=== PATIENT | female | born 1995 | race American Indian/Alaskan Native ===

== ENCOUNTER 2017-11-19 10:59 | Outpatient (CLI) | payer MEDICAID ==
[2017-11-19 13:26] LABS: Bilirubin,Urine NEG (Negative); Blood,Urine NEG (Negative); Color,Urine Yellow (Yellow); Mucus,Urine 3+ /HPF; Nitrite,Urine NEG (Negative); Urobilinogen,Urine < 2.0 mg/dL (<2.0)
[2017-11-19 13:35] LABS: Amphetamine Screen,Urine PRESUMPTIVE NEGATIVE; Benzodiazepines Screen,Urine PRESUMPTIVE NEGATIVE; Cocaine Screen,Urine PRESUMPTIVE NEGATIVE; Methadone Screen,Urine PRESUMPTIVE NEGATIVE; Opiate Screen,Urine PRESUMPTIVE NEGATIVE
[2017-11-19] MEDS ORDERED: ZOFRAN IV ONE (13:37)
[2017-11-19 13:50] LABS: Hemoglobin 13.1 gm/dl (10.1-14.3); Mean Corpuscular HGB Conc 34 % (30-34); Mean Corpuscular Hemoglobin 31 pg (28-32); Mean Corpuscular Volume 91 fl (79-97); Platelet Count 207 K/mm3 (140-440); Red Blood Count 4.31 M/mm3 (3.65-5.03); Red Cell Distribution Width 13.2 % (13.2-15.2)
[2017-11-19] MEDS ORDERED: LACTATED RINGERS 1,000 ML IV ONE (14:00)
[2017-11-19 14:08] LABS: Alanine Aminotransferase 10 units/L (7-56); Albumin 3.4 g/dL (3.9-5); BUN/Creatinine Ratio 23; Blood Urea Nitrogen 9 mg/dL (7-17); Calcium 8.7 mg/dL (8.4-10.2); Hemolysis Index 30
[2017-11-19 14:19] LABS: Cannabinoid Screen,Urine PRESUMPTIVE POSITIVE
[2017-11-19] MEDS ORDERED: D5LR 1,000 ML IV ONE ×2 (14:34→14:42)
[2017-11-19 14:55] LABS: Basophils % (Manual) 0 % (0.0-1.8); Eosinophils % (Manual) 0 % (0.0-4.3); Giant Platelets Rare; Platelet Estimate Consistent w Auto; RBC Morphology Normal; Total Cells Counted 100
== END 2017-11-19 15:50 | disposition home or self-care (01) ==
LOC: EDSTATUS 11:42 → TRG 11:48
PROVIDERS: ATTEND Obstetrics & Gynecology
DX: O47.02 False labor before 37 completed weeks of gestation, second trimester (principal); Z3A.19 19 weeks gestation of pregnancy
CPT/HCPCS: 36415; 59025; 80053; 80307; 81001; 85007; 85025; 96360; 96361; 96374; J2405; J7120; J7121

== ENCOUNTER 2017-12-31 23:56 | Outpatient (CLI) | payer MEDICAID ==
[2018-01-01] MEDS ORDERED: LACTATED RINGERS 500 ML IV ONE (00:17)
[2018-01-01 01:00] LABS: Bacteria,Urine 2+ /HPF (Negative); Bilirubin,Urine NEG (Negative); Blood,Urine NEG (Negative); Color,Urine Yellow (Yellow); Mucus,Urine FEW /HPF; Protein,Urine <15 mg/dL mg/dL (Negative); Urobilinogen,Urine < 2.0 mg/dL (<2.0)
[2018-01-01] MEDS ORDERED: LACTATED RINGERS 1,000 ML IV ONE (01:06)
--- NOTE | 2018-01-01 02:15 | Ultrasound Report ---
FINAL REPORT PROCEDURE: US OB BPP WO NON-STRESS TECHNIQUE: Real-time limited sonographic examination was performed for evaluation of size, position, heartbeat, fluid volume for each fetus with image documentation (1 or more fetuses). CPT 29406 HISTORY: DECELERATION COMPARISON: No prior studies are available for comparison. FINDINGS: biophysical profile: breathing movements: 2. movements: 2. posterior and tone: 2. Qualitative amniotic fluid volume: 2. Total score: 8/8. IMPRESSION: Normal biophysical profile.
[2018-01-01 02:27] VITALS: BP 86/50
== END 2018-01-01 02:10 | disposition home or self-care (01) ==
LOC: TRG 23:56
PROVIDERS: ATTEND Obstetrics & Gynecology
DX: O26.892 Other specified pregnancy related conditions, second trimester (principal); R10.9 Unspecified abdominal pain; Z3A.24 24 weeks gestation of pregnancy
CPT/HCPCS: 59025; 76819; 81001; 96360; J7120

== ENCOUNTER 2018-04-02 10:30 | Inpatient (IN) | payer OTHER ==
[2018-04-02] MEDS ORDERED: POLYCILLIN/NS 2 GM/100 ML 2 GM/100 ML BAG IV SCH (11:00)
[2018-04-02] MEDS ORDERED: LACTATED RINGERS 1,000 ML ONE (11:03)
[2018-04-02] MEDS: LACTATED RINGERS 1,000 ML IV SCH ×2 (11:09→12:11)
[2018-04-02 11:15] LABS: Basophils % (Auto) 0.4 % (0.0-1.8); Eosinophils % (Auto) 0.3 % (0.0-4.3); Hematocrit 36.6 % (30.3-42.9); Hemoglobin 12.2 gm/dl (10.1-14.3); Lymphocytes # (Auto) 1.8 K/mm3 (1.2-5.4); Lymphocytes % (Auto) 14.3 % (13.4-35.0); Mean Corpuscular HGB Conc 33 % (30-34); Mean Corpuscular Hemoglobin 29 pg (28-32); Mean Corpuscular Volume 88 fl (79-97); Monocytes # (Auto) 0.7 K/mm3 (0.0-0.8); Monocytes % (Auto) 5.5 % (0.0-7.3); Platelet Count 190 K/mm3 (140-440); Red Blood Count 4.17 M/mm3 (3.65-5.03); Red Cell Distribution Width 13.6 % (13.2-15.2)
[2018-04-02] MEDS ORDERED: SUBLIMAZE IV ONE (12:00)
--- NOTE | 2018-04-02 12:01 | History and Physical Report ---
History of Present Illness Date of examination: 04/02/18 Date of admission: 04/02/18 10:30 Chief complaint: My water broke at 8:00 this morning History of present illness: Late and Limited Care; Entered care at 13 3/7 Weeks; [facility] 01/06/2018 at 25 6/7 Weeks. course also complicated by N&V, and Vitamin D Deficiency. Co-managed with [facility] due to a Strong Family Hx of Heart Defects and Large for Gestational Age. Also admits to THC Use. Past History Past Medical History: other (Skull fracture in 2010) Past Surgical History: no surgical history FEE CLERK History: chlamydia Family/Genetic History: diabetes (mother and aunt), heart disease (Son; VSD and Mother; valve Dx) Social history: single, smoking (THC) - Obstetrical History Expected Date of Delivery: 04/15/18 Actual Gestation: 38 Week(s) 1 Day(s) : 3 Para: 2 Hx # Term Pregnancies: 2 Number of Living Children: 2 #1 Infant Gender: Female year: 2,014 Birthweight: 3.09 kg Method of Delivery: Vaginal Gestational age at delivery: 40 #2 Infant Gender: Male year: 2,015 Birthweight: 2.778 kg Method of Delivery: Vaginal Gestational age at delivery: 40 Medications and Allergies Allergies Allergy/AdvReac Type Severity Reaction Status Date / Time No Known Allergies Allergy Verified 03/22/14 15:20 Home Medications Medication Instructions Recorded Confirmed Last Taken Type Vit-Fe Fumar-FA [ 1 each PO QDAY #90 tablet 02/08/15 11/19/17 Unknown Rx Vitamin] Active Meds: Active Medications Fentanyl (Sublimaze) 100 mcg IV ONCE ONE Stop: 04/02/18 12:01 Last Admin: 04/02/18 11:34 Dose: 100 mcg Lactated Ringer's (Lactated Ringers) 1,000 mls @ 125 mls/hr IV DIRECT SAMUEL Last Admin: 04/02/18 11:09 Dose: 125 mls/hr Ampicillin Sodium (Polycillin/Ns 2 Gm/100 Ml) 2 gm in 100 mls @ 100 mls/hr IV ONCE SAMUEL; Protocol Last Admin: 04/02/18 11:10 Dose: 100 mls/hr Ampicillin Sodium (Ampicillin/Ns 1 Gm/50 Ml) 1 gm in 50 mls @ 100 mls/hr IV Q4H SAMUEL; Protocol Review of Systems Genitourinary: leakage of fluid - Vital Signs Vital signs: Vital Signs Temp Resp 97.9 F 18 04/02/18 10:43 04/02/18 10:43 Temp Pulse Resp BP Pulse Ox 97.9 F 83 18 128/70 100 04/02/18 10:43 04/02/18 11:31 04/02/18 10:43 04/02/18 11:31 04/02/18 10:55 - Physical Exam Breasts: Positive: normal Cardiovascular: Regular rate Lungs: Positive: Clear to auscultation, Normal air movement Abdomen: Positive: normal appearance, soft, normal bowel sounds Genitourinary (Female): Positive: normal external genitalia, normal perenium Vagina: Positive: other (leaking a large amount of clear fluid) Uterus: Positive: enlarged Anus/Rectum: Positive: normal perianal skin Extremities: Positive: normal - Obstetrical FHR: category 1 Uterine Contraction Monitor Mode: External Cervical Dilatation: 6 (leaking clear fluid; Vtx) Cervical Effacement Percentage: 90 station: 0 Uterine Contraction Frequency (min): 2 Uterine Contraction Pattern: Regular Uterine Tone Measurement Phase: Resting Uterine Contraction Intensity: Moderate Results Result Diagrams: 04/02/18 10:45 Abnormal lab results 04/02/18 Range/Units 10:45 WBC 12.5 H (4.5-11.0) K/mm3 Seg Neutrophils % 79.5 H (40.0-70.0) % Seg Neutrophils # 10.0 H (1.8-7.7) K/mm3 All other labs normal. Assessment and Plan A: IUP @ 38 1/7 Weeks SROM Category I Tracing Late and Limited Care GBS Unknown P: Admit to L&D per Routine Orders GBS Prophylaxis Pain Management
[2018-04-02] MEDS ORDERED: PITOCin/NS 20 UNIT/1000ML DRIP 20,000 MILLIUNITS/1,000 ML BAG IV ONE (12:06)
[2018-04-02 12:46] LABS: Bacteria,Urine 1+ /HPF (Negative); Bilirubin,Urine NEG (Negative); Blood,Urine LG (Negative); Color,Urine Yellow (Yellow); Mucus,Urine 2+ /HPF; RBC,Urine > 182.0 /HPF (0.0-6.0); Urobilinogen,Urine < 2.0 mg/dL (<2.0)
[2018-04-02] MEDS ORDERED: BENADRYL PO PRN (12:47)
[2018-04-02 12:48] LABS: Amphetamine Screen,Urine PRESUMPTIVE NEGATIVE; Benzodiazepines Screen,Urine PRESUMPTIVE NEGATIVE; Cocaine Screen,Urine PRESUMPTIVE NEGATIVE; Methadone Screen,Urine PRESUMPTIVE NEGATIVE; Opiate Screen,Urine PRESUMPTIVE NEGATIVE
--- NOTE | 2018-04-02 12:56 | Procedure Note ---
OB Delivery Note - Delivery Date of Delivery: 04/02/18 (1223) Surgeon: FIDEL PARRY Estimated blood loss: 200cc - Vaginal Delivery presentation: vertex Delivery position: OA Intrapartum events: none Delivery induction: none Delivery monitor: external FHT, external uterine Route of delivery: Delivery placenta: spontaneous Delivery cord: nuchal cord, 3 umbilical vessels Episiotomy: none Delivery laceration: none Anesthesia: none Delivery comments: of a live 6'13 male over a intact perineum under IV pain control with Apgars of 8 and 9 at 1223 on 04/02/2018. Nuchal cord x 1 easily manually reduced on the perineum prior to delivery of the anterior shoulder. Infant directly to maternal abd/chest, skin to skin contact. Delayed cord clamping and cutting; Cord cut by the maternal grandmother. Spontaneous delivery of the placenta complete and intact with Smalls side presenting at 1237. Fundus is firm and midline located 4 below the U. Lochia is scant. Cord blood collected. Patient desires to take placenta home. GBS prophylaxis X1. - Infant A at 1 minute: 8 at 5 minutes: 9 Gender: Male ([phone])
[2018-04-02 13:00] LABS: Cannabinoid Screen,Urine PRESUMPTIVE POSITIVE
[2018-04-02] MEDS ORDERED: SODIUM CHLORIDE FLUSH SYRINGE 10 ML IV NR (13:00)
[2018-04-02] MEDS ORDERED: PITOCin/NS 30 UNIT/500ML 30 UNITS/500 ML BAG IV SCH (13:00)
[2018-04-02] MEDS ORDERED: PITOCin/NS 20 UNIT/1000ML DRIP 20 UNITS/1,000 ML BAG IV SCH ×2 (14:00→16:00)
[2018-04-02] MEDS ORDERED: LACTATED RINGERS 1,000 ML IV SCH (14:00)
[2018-04-02] MEDS ORDERED: AMPICILLIN/NS 1 GM/50 ML 1 GM/50 ML BAG IV SCH (15:00)
[2018-04-02] MEDS: MOTRIN PO SCH ×2 (15:43→21:28)
[2018-04-02] MEDS: NORCO 5/325 PO PRN (15:44)
[2018-04-03 01:04] LABS: Hematocrit 30.8 % (30.3-42.9); Hemoglobin 10.1 gm/dl (10.1-14.3)
[2018-04-03] MEDS: MOTRIN PO SCH ×3 (04:55→17:55)
--- NOTE | 2018-04-03 11:38 | Progress Note ---
Assessment and Plan - Patient Problems (1) Status post normal vaginal delivery Current Visit: Yes Status: Acute Plan to address problem: PPD 1 - stable Continue routine PP orders Discharge to home 04/04/18 Follow-up at [facility] in 6 weeks for PP exam (2) Marijuana use Current Visit: Yes Status: Acute Plan to address problem: Positive THC screen 04/02 Case Management Consult ordered Subjective - Subjective Date of service: 04/03/18 Principal diagnosis: s/p Normal Spontaneous Vaginal Delivery Patient reports: appetite normal, voiding normally, pain well controlled, ambulating normally : doing well, bottle feeding Objective - Vital Signs Latest vital signs: Vital Signs Temp Pulse Resp BP BP Pulse Ox 04/03/18 07:45 98.1 F 61 20 100/53 04/03/18 04:55 20 04/03/18 00:00 98.0 F 61 20 105/63 04/02/18 22:28 20 04/02/18 21:28 18 04/02/18 20:15 98.0 F 61 18 109/62 04/02/18 18:02 98.8 F 55 L 18 108/58 04/02/18 16:43 64 100 04/02/18 16:42 98.1 F 65 18 108/58 99 04/02/18 15:44 20 04/02/18 15:43 20 04/02/18 14:30 59 L 20 101/69 04/02/18 14:16 73 99/49 04/02/18 14:01 62 132/61 04/02/18 13:31 63 128/64 04/02/18 13:15 58 L 132/77 04/02/18 13:00 54 L 134/66 04/02/18 12:52 71 128/59 04/02/18 12:31 74 121/57 04/02/18 12:15 73 134/73 04/02/18 12:01 85 130/69 Intake and Output 04/02/18 04/03/18 04/03/18 23:59 07:59 15:59 Intake Total 360 240 Balance 360 240 Intake: Oral 360 240 Other: Total, Intake Amount 120 240 # Voids Void 1 1 - Exam Cardiovascular: Present: Regular rate, Normal S1, Normal S2, No murmurs Lungs: Present: Clear to auscultation, Normal air movement Abdomen: Present: normal appearance, soft Vulva: both: normal Uterus: Present: normal, firm, fundal height below umbilicus Extremities: Present: normal Deep Tendon Reflex Grade: Normal +2 - Labs Labs: Abnormal lab results 04/02/18 Range/Units 12:25 Urine WBC (Auto) 15.0 H (0.0-6.0) /HPF
--- NOTE | 2018-04-03 11:42 | Discharge Summary ---
Providers - Providers Date of Admission: 04/02/18 10:30 Date of discharge: 04/04/18 Attending physician: TONYA BARTLETT MD 04/03/18 11:24 Consult to Case Management [CONS] Routine Services Needed at Discharge: Cat Tender Additional Physician Instructions: Patient had a normal spontaneous vaginal delivery on 04/02/2018 and tested positive for marijuana. Primary care physician: TONYA BARTLETT MD Hospitalization Reason for admission: active labor, IUP at term Delivery: Episiotomy: none Laceration: none Other procedures: none complications: none Discharge diagnosis: IUP at term delivered baby: male Hospital course: Complicated by positive THC screen Condition at discharge: Stable Disposition: DC-01 TO HOME OR SELFCARE - Discharge Diagnoses (1) Status post normal vaginal delivery Status: Acute (2) Marijuana use Status: Acute Plan - Provider Discharge Summary Activity: routine, no sex for 6 weeks, no heavy lifting 4 weeks, no strenuous exercise Diet: routine Instructions: routine Additional instructions: [] Smoking cessation referral if applicable(refer to patient education folder for contact #) [] Refer to [facility]'s [facility] Booklet Call your doctor immediately for: * Fever > 100.5 * Heavy vaginal bleeding ( >1 pad per hour) * Severe persistent headache * Shortness of breath * Reddened, hot, painful area to leg or breast * Drainage or odor from incision. * Keep incision clean and dry at all times and follow doctor's instructions regarding bathing/showering - Follow up plan Follow up: TONYA BARTLETT MD [Primary Care Provider] - 6 Weeks (Call [facility] to schedule an appointment in 6 weeks for exam)
[2018-04-03] MEDS: NORCO 5/325 PO PRN (19:29)
[2018-04-04] MEDS: MOTRIN PO SCH ×2 (04:28→12:27)
[2018-04-04 17:17] VITALS: BP 118/80
== END 2018-04-04 17:30 | disposition home or self-care (01) | DRG 775 ==
LOC: LD 10:30 → OB 14:42
PROVIDERS: ADMIT Obstetrics & Gynecology; ATTEND Obstetrics & Gynecology
PROC: 10E0XZZ Delivery of Products of Conception, External Approach (ICD-10-PCS; principal; 2018-04-02)
DX: O69.81X0 Labor and delivery complicated by cord around neck, without compression, not applicable or unspecified (principal); O99.324 Drug use complicating childbirth; Z3A.38 38 weeks gestation of pregnancy; Z37.0 Single live birth; F12.90 Cannabis use, unspecified, uncomplicated
CPT/HCPCS: 36415; 80307; 81001; 85014; 85018; 85025; 86592; 86850; 86900; 86901; 99211; G0463; J0290; J2590; J3010; J7120

== ENCOUNTER 2019-05-26 11:18 | Emergency (ER) | payer MEDICAID ==
[2019-05-26 11:30] VITALS: BP 107/63
--- NOTE | 2019-05-26 11:31 | Event Note ---
ED Screening Note Date of service: 05/26/19 Time: 11:29 ED Screening Note: 23 y/o female comes in for abd pain with nausea and vomiting since this morning. LMP 05/24/19. This initial assessment/diagnostic orders/clinical plan/treatment(s) is/are subject to change based on patients health status, clinical progression and re- assessment by fellow clinical providers in the ED. Further treatment and workup at subsequent clinical providers discretion. Patient/guardian urged not to elope from the ED as their condition may be serious if not clinically assessed and managed. Initial orders include:
[2019-05-26 12:28] LABS: Basophils # (Auto) 0.1 K/mm3 (0.0-0.1); Basophils % (Auto) 1.1 % (0.0-1.8); Eosinophils % (Auto) 0.1 % (0.0-4.3); Hematocrit 44.7 % (30.3-42.9); Hemoglobin 14.9 gm/dl (10.1-14.3); Mean Corpuscular HGB Conc 33 % (30-34); Mean Corpuscular Hemoglobin 30 pg (28-32); Mean Corpuscular Volume 90 fl (79-97); Monocytes # (Auto) 0.4 K/mm3 (0.0-0.8); Monocytes % (Auto) 4.3 % (0.0-7.3); Platelet Count 282 K/mm3 (140-440); Red Blood Count 4.98 M/mm3 (3.65-5.03); Red Cell Distribution Width 13.2 % (13.2-15.2)
[2019-05-26 12:31] LABS: Alanine Aminotransferase 16 units/L (7-56); Albumin 4.5 g/dL (3.9-5); BUN/Creatinine Ratio 16; Blood Urea Nitrogen 13 mg/dL (7-17); Calcium 9.7 mg/dL (8.4-10.2); Hemolysis Index 4
[2019-05-26] MEDS ORDERED: ZOFRAN IM ONE (12:42)
--- NOTE | 2019-05-26 12:48 | Emergency Department Report ---
ED N/V/D HPI - General Chief complaint: Abdominal Pain Stated complaint: VOMIT/DIARRHEA Time Seen by Provider: 05/26/19 12:39 Source: patient Mode of arrival: Wheelchair Limitations: No Limitations - History of Present Illness Initial comments: Patient is 23 years old female with no significant past medical history. Patient presented to the ER complaining of nausea vomiting and diarrhea started this morning. Patient stated that she ate at [employer] yesterday. Patient denied any fever or chills. MD complaint: nausea, vomiting, diarrhea -: This morning Description of Vomiting: food contents Description of Diarrhea: water Associated Abdominal Pain: Yes Location: diffuse Radiation: none Severity: mild Quality: cramping Consistency: intermittent Context: possible food poisoning Associated Symptoms: denies other symptoms - Related Data Previous Rx's Medication Instructions Recorded Last Taken Type Vit-Fe Fumar-FA [ 1 each PO QDAY #90 tablet 02/08/15 Unknown Rx Vitamin] Allergies Allergy/AdvReac Type Severity Reaction Status Date / Time No Known Allergies Allergy Verified 05/26/19 11:22 ED Review of Systems ROS: Stated complaint: VOMIT/DIARRHEA Other details as noted in HPI Comment: All other systems reviewed and negative Constitutional: denies: chills, fever Respiratory: denies: cough, shortness of breath, SOB with exertion Cardiovascular: denies: chest pain Gastrointestinal: abdominal pain, nausea, vomiting, diarrhea Musculoskeletal: denies: back pain Neurological: denies: headache, weakness, numbness, paresthesias ED Past Medical Hx - Past Medical History Previous Medical History?: No Hx Hypertension: No Hx Congestive Heart Failure: No Hx Diabetes: No Hx Deep Vein Thrombosis: No Hx Renal Disease: No Hx Sickle Cell Disease: No Hx Seizures: No Hx Asthma: No Hx COPD: No Hx HIV: No - Surgical History Past Surgical History?: No - Social History Smoking Status: Never Smoker Substance Use Type: Marijuana - Medications Home Medications: Home Medications Medication Instructions Recorded Confirmed Last Taken Type Vit-Fe Fumar-FA [ 1 each PO QDAY #90 tablet 02/08/15 11/19/17 Unknown Rx Vitamin] ED Physical Exam - General Limitations: No Limitations General appearance: alert, in no apparent distress - Head Head exam: Present: atraumatic, normocephalic, normal inspection - Eye Eye exam: Present: normal appearance - ENT ENT exam: Present: normal exam, normal orophraynx, mucous membranes moist - Neck Neck exam: Present: normal inspection. Absent: tenderness, meningismus - Respiratory Respiratory exam: Present: normal lung sounds bilaterally - Cardiovascular Cardiovascular Exam: Present: regular rate, normal rhythm, normal heart sounds - GI/Abdominal GI/Abdominal exam: Present: soft, normal bowel sounds. Absent: distended, tenderness, guarding, rebound, rigid - Extremities Exam Extremities exam: Present: normal inspection, full ROM, normal capillary refill - Back Exam Back exam: Present: normal inspection. Absent: CVA tenderness (R), CVA tenderne ss (L), muscle spasm, paraspinal tenderness, vertebral tenderness - Neurological Exam Neurological exam: Present: alert, oriented X3, CN II-XII intact, normal gait, reflexes normal - Psychiatric Psychiatric exam: Present: normal mood - Skin Skin exam: Present: warm, intact, normal color ED Course Vital Signs 05/26/19 11:26 Temperature 97.4 F L Pulse Rate 84 Respiratory 16 Rate Blood Pressure 107/63 O2 Sat by Pulse 97 Oximetry ED Medical Decision Making - Lab Data Result diagrams: 05/26/19 11:42 05/26/19 11:42 - Medical Decision Making Patient is 23 years old female with no significant past medical history. Yuriy beltre presented to the ER complaining of nausea vomiting and diarrhea started this morning. Patient stated that she ate at [employer] yesterday. Patient denied any fever or chills. Patient received Zofran IM. Patient tolerated by mouth intake very well no vomiting. Patient will be given a prescription for Zofran and advised to follow-up with her primary care physician in the next 2-3 days and to return to the ER if symptoms are not improved. Critical care attestation.: If time is entered above; I have spent that time in minutes in the direct care of this critically ill patient, excluding procedure time. ED Disposition Clinical Impression: Food poisoning Disposition: DC-01 TO HOME OR SELFCARE Is pt being admited?: No Condition: Stable Instructions: Abdominal Pain (ED), Food Poisoning (ED) Referrals: ALANA HINKLE MD [Primary Care Provider] - 3-5 Days
== END 2019-05-26 14:33 | disposition home or self-care (01) ==
LOC: ED 11:18
DX: T62.8X1A Toxic effect of other specified noxious substances eaten as food, accidental (unintentional), initial encounter (principal); F12.10 Cannabis abuse, uncomplicated; Z79.899 Other long term (current) drug therapy; Y92.89 Other specified places as the place of occurrence of the external cause
CPT/HCPCS: 36415; 80053; 85025; 96372; 99283; J2405